=== PATIENT | female | born 1945 | race Caucasian/White ===

== ENCOUNTER 2020-11-28 11:00 | Outpatient (RCR) | payer MEDICARE, SELFPAY ==
--- NOTE | 2020-10-29 11:11 | OTOPEVAL ---
OCCUPATIONAL THERAPY INITIAL EVALUATION REPORT 10/29/20 Thank you for referring Harper Palomo to [facility].? The patient is scheduled to be seen for therapy? 2x/week for 4 weeks. Please review, sign, date and return this plan of care LAURA. I agree with and certify that the following plan of care is medically necessary. Referring Physician Date Referring Provider: Junior Ludwig MD Per patient request, please also CC her PCP: Dr. Cuauhtemoc Owen *OT Outpatient Evaluation Therapy Assessment Status Assessment Status Assessment Status Evaluation Outpatient Past Medical History Neurological History Hx Neurological Disorders No Significant History Cardiovascular History Hx Hypercholesterolemia Yes Respiratory History Hx Respiratory Disorders No Significant History Gastrointestinal History Hx Gastrointestinal Disorders No Significant History Genitourinary History Hx Genitourinary Disorders No Significant History Musculoskeletal History Hx Fractures Yes: Left wrist 08/2020; Right metatarsal 1992 Reproductive History Hx Reproductive Disorders No Significant History Evaluation Information Problem Diagnosis Left distal radius fracture Additional Evaluation Detail Onset: 08/26/20 ORIF: 09/03/20 Subjective Information PSFS 08/14 Prior Level of Function Activity Level (Last 3 Months) Occupation Retired Hand Dominance Right Activity of Daily Living Ability Independent Cleaning Yes Driving Yes Comments Additional Prior Level of Function Patient states she has Comments returned to being independent with ADLs, but has been more careful when using the left hand. She states she has difficulties using the left hand to pull up pants, molded goods spot picker sticks in her yard, carry items, and turn her arm palm up. Pain Assessment Timing of Pain Assessment Timing of Pain Assessment Assessment Pain Scale Pain Scale Used Numeric (1 - 10) Self Report Pain Assessment Left Wrist(s) Reported Pain Level 0 Pain Description Sharp Lowest Pain Intensity 0 Greatest Pain Intensity 3 Pain Score Pain Score 0: Self Report Upper Extremity Range of Motion Elbow/Forearm Range of Motion Right Forearm Supination - Active 85 Forearm Pronation - Active 80 Left Forearm Supination - Active 50 Forearm Pronation - Active 55 Wrist Range of Motion Right Wrist Flexion - Active 80 Wrist Ex
--- NOTE | 2020-11-28 11:44 | OTOPEVAL ---
OCCUPATIONAL THERAPY RE-EVALUATION AND DISCHARGE SUMMARY Patient presents today for OT re-evaluation after 8 treatment sessions focused on improving functional ROM and strength of the left forearm, wrist, and hand following ORIF of the distal radius. She has made excellent progress with therapy and has returned to normal use of the left hand/UE. She is currently independent with strengthening HEP. Recommend that the patient continue to diligently complete her strengthening HEP for another 6 weeks on her own. Plan to D/C today with HEP. Thank you for referring Harper Palomo to [facility].? Please review, sign, date and return this D/C Note LAURA. I agree with and certify that the following plan of care is medically necessary. Referring Physician Date Referring Provider: Junior Ludwig MD *OT Outpatient Evaluation Evaluation Information Diagnosis Left distal radius fracture s/p ORIF 09/03/20 Subjective Information Patient reports improved Query Text:As Reported By Patient/ ability to use her left hand. Family She states she has returned to doing yard work and using yard tools without difficulties. She has returned to using the left hand to pinch and pull up her pants without a second thought. She also notes improved ability to supinate and carry items also . She states there are no tasks she is currently unable to do. Pain Assessment Timing of Pain Assessment Timing of Pain Assessment Re-assessment Pain Scale Pain Scale Used Numeric (1 - 10) Self Report Pain Assessment Left Wrist(s) Reported Pain Level 0 Lowest Pain Intensity 0 Greatest Pain Intensity 0 Pain Score Pain Score 0: Self Report Upper Extremity Range of Motion Elbow/Forearm Range of Motion Left Forearm Supination - Active 80 Forearm Pronation - Active 85 Elbow/Forearm Range of Motion Comments Elbow flexion/extension remained at normal limits. Forearm pronation/supination is symmetrical to the right. Supination improved from 50* Pronation improved from 55* Wrist Range of Motion Left Wrist Flexion - Active 60 Wrist Flexion - Passive 70 Wrist Extension - Active 50 Wrist Extension - Passive 60 Wrist Radial Deviation - Active 22 Wrist Ulnar Deviation - Active 30 Wrist Range of Motion Comments Flexion improved from 50* Extension improved from 30* RD improved from 15* UD improved from 15
== END 2020-11-29 12:01 | disposition home or self-care (01) ==
LOC: ANHOT 11:00
DX: S52.502D Unspecified fracture of the lower end of left radius, subsequent encounter for closed fracture with routine healing (principal)
CPT/HCPCS: 97018; 97110; 97140; 97165